=== PATIENT | female | born 2000 | race Caucasian/White ===

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

== ENCOUNTER 2022-09-26 06:05 | Emergency (ER) | payer OTHER ==
[~2022-09-26] VITALS: Ht 154.9 cm; Wt 49.9 kg
[~2022-09-26 06:05] MED LIST: ACET-1317 PO; NITR100C7 PO
[2022-09-26 06:10] VITALS: BP 126/56
--- NOTE | 2022-09-26 06:17 | NUR ---
pt to bed #5
--- NOTE | 2022-09-26 06:28 | NUR ---
22 Y/O F PRESENTS WITH ABDOMINAL PAIN RADIATING TO LOWER BACK, ASSOCIATED WITH DYSURIA AND URGENCY TO VOID, PT STATED ONLY DRIBBLING WITH DISCOMFORT XLAST NIGHT. PT STATED SHE HAS NAUSEA BUT DENIES VD, HEADACHES. PT IS AMBULATORY A&OX4, SKIN INTACT, RESPIRATIONS EVEN AND UNLABORED. PMH- DEPRESSION, SMOKER NKA MEDS- HYDROXYZINE, PROZAC
--- NOTE | 2022-09-26 06:49 | NUR ---
UA COLLECTED AND SENT TO LAB
--- NOTE | 2022-09-26 06:50 | NUR ---
WALKED URINE TO LAB.
[2022-09-26] MEDS ORDERED: NITR100C7 PO (07:11)
[2022-09-26] MEDS ORDERED: PHEN-1877 PO (07:11)
--- NOTE | 2022-09-26 07:18 | NUR ---
Pt report given to JESE TRIPLETT. Transfer of care at this time.
[2022-09-26 07:29] LABS: APPEARANCE,URINE CLEAR (CLEAR); BILIRUBIN,URINE NEGATIVE (NEGATIVE); BLOOD, URINE 3+ (NEGATIVE); COLOR,URINE YELLOW (YELLOW); LEUKOCYTE ESTERASE ,URINE 2+ (NEGATIVE); NITRITE, URINE POSITIVE (NEGATIVE); PH,URINE 6.5 (5.0-9.0); UGLUCOSE NEGATIVE (NEGATIVE)
[2022-09-26 07:35] LABS: RBC,URINE TOO NUMEROUS TO COUN /HPF (0-5); YEAST,URINE None Seen /HPF (None Seen)
--- NOTE | 2022-09-26 07:36 | NUR ---
DR DUBON AT BEDSIDE.
[2022-09-26 07:40] VITALS: BP 121/71
--- NOTE | 2022-09-26 07:41 | NUR ---
Patient discharged with v/s stable. Written and verbal after care instructions given and explained. Patient alert, oriented and verbalized understanding of instructions. Ambulatory with steady gait. All questions addressed prior to discharge. ID band removed. Patient advised to follow up with PMD. Rx of NITROFURANTOIN MONOHYD/M-CRYST, PHENAZOPYRIDINE given. Patient educated on indication of medication including possible reaction and side effects. Opportunity to ask questions provided and answered.
--- NOTE | 2022-09-26 07:42 | NUR ---
The patient's care was reviewed and supervised by Aida Roe, RN, RN.
== END 2022-09-26 07:41 | disposition home or self-care (01) ==
LOC: MED 06:05
DX: N39.0 Urinary tract infection, site not specified (principal); F17.210 Nicotine dependence, cigarettes, uncomplicated; F32.A Depression, unspecified; Z71.6 Tobacco abuse counseling; Z79.899 Other long term (current) drug therapy
CPT/HCPCS: 81001; 81025; 87086; 99283